=== PATIENT | male | born 1940 | race Caucasian/White ===

== ENCOUNTER 2018-08-28 10:40 | Emergency (ER) | payer MEDICARE, OTHER ==
[~2018-08-28] VITALS: Ht 177.8 cm; Wt 86.0 kg
--- NOTE | 2018-08-28 11:45 | NUR ---
PT TO MRI VIA [facility] AT THIS TIME.
[2018-08-28 13:24] VITALS: BP 148/82
== END 2018-08-28 13:26 | disposition home or self-care (01) ==
LOC: ED 13:20
DX: M51.26 Other intervertebral disc displacement, lumbar region (principal); M54.42 Lumbago with sciatica, left side; G89.29 Other chronic pain
CPT/HCPCS: 72148; 99284

== ENCOUNTER 2018-11-06 10:48 | Outpatient (CLI) | payer MEDICARE, OTHER | END 2018-11-06 23:59 | disposition home or self-care (01) | LOC: STAR 10:48 | PROVIDERS: ATTEND Orthopaedic Surgery | DX: Z01.818 Encounter for other preprocedural examination (principal); M17.12 Unilateral primary osteoarthritis, left knee; I45.10 Unspecified right bundle-branch block | CPT/HCPCS: 36415; 80053; 85025; 87081; 93005 ==

== ENCOUNTER → 2019-04-04 | Outpatient (CLI) | payer MEDICARE, OTHER ==
[~2019-04-04] MED LIST: ASPI-496 PO; CARB15DR3 EACHEYE; CETI10TA24 PO; FINA5TAB4 PO; LOSA50TA14 PO; MULT1TAB60 PO; OMEP20TA62 PO; OXYC5TAB3 PO; SIMV10TA3 PO; VIT1CAPS16 PO
== END | disposition home or self-care (01) ==
LOC: CVU 14:30
PROVIDERS: ATTEND Internal Medicine Cardiovascular Disease
DX: M79.606 Pain in leg, unspecified (principal); I70.8 Atherosclerosis of other arteries
CPT/HCPCS: 93922

== ENCOUNTER → 2020-02-19 | Outpatient (CLI) | payer MEDICARE, OTHER ==
[~2020-02-19] MED LIST changes: -CETI10TA24 PO; +CETI10TA76 PO; +MULT-449 PO; -MULT1TAB60 PO; +SIMV10TA18 PO; -SIMV10TA3 PO
== END | disposition home or self-care (01) ==
LOC: RAD 13:21
PROVIDERS: ATTEND Family Medicine
DX: M79.605 Pain in left leg (principal)